=== PATIENT | male | born 1985 | race Caucasian/White ===

== ENCOUNTER 2022-01-22 15:19 | Emergency (ER) | payer OTHER ==
[~2022-01-22] VITALS: Ht 188 cm; Wt 94.8 kg
[~2022-01-22 15:19] MED LIST: ACET-66 PO; BENZ-39 PO; IBUP-2070 PO; ONDA4TAB10 PO
[2022-01-22] MEDS ORDERED: LIDOCAINE 5% TOPICAL PATCH TP ONE (19:00)
[2022-01-22] MEDS ORDERED: MORPHINE 4 MG SYG IM ONE (19:00)
[2022-01-22] MEDS ORDERED: CYCLOBENZAPRINE HCL 10 MG TABLET PO ONE (19:00)
[2022-01-22] MEDS ORDERED: HYDROCODONE/ACETAMINOPHEN 5/325 MG TAB PO ONE (21:30)
[2022-01-22] MEDS ORDERED: IBUP-2077 PO (21:35)
[2022-01-22] MEDS ORDERED: CYCL10TA16 PO (21:35)
[2022-01-22] MEDS ORDERED: LIDOP TD (21:35)
[2022-01-22 21:46] VITALS: BP 105/56
== END 2022-01-22 21:52 | disposition home or self-care (01) ==
LOC: EDH 15:19
DX: M62.830 Muscle spasm of back (principal); F17.200 Nicotine dependence, unspecified, uncomplicated; Z79.1 Long term (current) use of non-steroidal anti-inflammatories (NSAID); Z90.49 Acquired absence of other specified parts of digestive tract
CPT/HCPCS: 72100; 96372; 99285; J2270

== ENCOUNTER 2022-06-04 20:17 | Emergency (ER) | payer OTHER ==
[~2022-06-04] VITALS: Ht 188 cm; Wt 127.0 kg
[~2022-06-04 20:17] MED LIST changes: +CYCL10TA16 PO; +IBUP-2077 PO; +LIDOP TD
[2022-06-04 21:34] VITALS: BP 136/77
[2022-06-04] MEDS ORDERED: HYDR25SU38 RC (21:36)
[2022-06-04] MEDS ORDERED: ACET-2079 PO (21:36)
== END 2022-06-04 21:49 | disposition home or self-care (01) ==
LOC: EDH 20:17
DX: K62.89 Other specified diseases of anus and rectum (principal); K64.8 Other hemorrhoids; F17.200 Nicotine dependence, unspecified, uncomplicated; Z79.899 Other long term (current) drug therapy; Z90.89 Acquired absence of other organs